=== PATIENT | male | born 1980 | race Caucasian/White ===

== ENCOUNTER → 2021-06-22 | Day surgery (SDC) | payer BC ==
[~2021-06-22] MED LIST: LAMOTRIGINE100 MG PO
[2021-06-22 10:15] VITALS: BP 102/55
== END | disposition home or self-care (01) ==
LOC: OR 05:37
PROVIDERS: ATTEND Internal Medicine Gastroenterology
DX: K21.9 Gastro-esophageal reflux disease without esophagitis (principal); K63.5 Polyp of colon; K29.70 Gastritis, unspecified, without bleeding; Q40.8 Other specified congenital malformations of upper alimentary tract; K20.90 Esophagitis, unspecified without bleeding; K44.9 Diaphragmatic hernia without obstruction or gangrene; K57.30 Diverticulosis of large intestine without perforation or abscess without bleeding; K62.5 Hemorrhage of anus and rectum; K64.8 Other hemorrhoids; F32.A Depression, unspecified; Z01.810 Encounter for preprocedural cardiovascular examination
CPT/HCPCS: 43239; 45380; 93005; C9113; 45384